=== PATIENT | male | born 1970 | race Asian ===

== ENCOUNTER 2024-11-11 00:37 | Emergency (ER) | payer SELFPAY ==
[~2024-11-11] VITALS: Ht 165.1 cm; Wt 73.0 kg
[2024-11-11 00:55] VITALS: O2SAT 95
[2024-11-11] MEDS ORDERED: HALOPERIDOL LACTATE 5MG/ML VIAL IM ONE (02:00)
[2024-11-11 03:47] LABS: BASOPHILS % 0.3 % (0.0-2.0); EOSINOPHILS % 0.7 % (0.0-5.0); HEMOGLOBIN. 15.9 g/dL (14.0-18.0); LYMPHOCYTES % 34.1 % (20.0-50.0); MEAN CORPUSCULAR HEMOGLOBIN 32.9 pg (28.0-32.0); MEAN CORPUSCULAR HGB CONC 35.3 g/dL (31.0-37.0); MEAN CORPUSCULAR VOLUME 93.4 fL (80.0-94.0); MEAN PLATELET VOLUME 7.5 fl (7.4-10.4); MONOCYTES % 6.9 % (2.0-8.0); PLATELET 237 x1000/uL (130-400); RED BLOOD CELL COUNT 4.82 mill/uL (4.7-6.1); RED CELL DISTRIBUTION WIDTH 12.8 % (11.6-14.6); WHITE BLOOD COUNT 6.1 x1000/uL (4.5-11.0)
[2024-11-11] MEDS: HALOPERIDOL LACTATE 5MG/ML VIAL IM NR (03:52)
[2024-11-11 03:54] LABS: CARBON DIOXIDE 26 mEq/L (21-32); CHLORIDE 103 mEq/L (98-107); POTASSIUM 3.4 mEq/L (3.5-5.1); SODIUM 143 mEq/L (136-145)
[2024-11-11 03:55] LABS: CALCIUM 9.7 mg/dL (8.7-10.4)
[2024-11-11 03:59] LABS: CREATININE 1.5 mg/dL (0.6-1.3)
[2024-11-11 04:00] LABS: ETHANOL BLOOD 300 mg/dL (<10); GLUCOSE 120 mg/dL (70-105); UREA NITROGEN BLOOD 25 mg/dL (9-23)
[2024-11-11 04:01] LABS: ALANINE AMINOTRANSFERASE 44 IU/L (10-49); ALBUMIN 4.4 g/dL (3.2-4.8); ASPARTATE AMINOTRANSFERASE 24 IU/L (<34)
[2024-11-11 04:02] LABS: BILIRUBIN DIRECT 0.1 mg/dL (<=3.0); BILIRUBIN TOTAL 0.9 mg/dL (0.1-1.0); PROTEIN TOTAL 6.8 g/dL (6.0-8.3)
[2024-11-11 05:42] LABS: ACETAMINOPHEN < 2 ug/mL (10-30)
[2024-11-11] MEDS: SODIUM CHLORIDE 0.9% 1,000 ML IV SCH (09:15)
[2024-11-11] MEDS ORDERED: IPRATROPIUM/ALBUTEROL 0.5-3(2.5)MG/3ML NEB HHN PRN (09:15)
[2024-11-11] MEDS ORDERED: ONDANSETRON HCL 4MG/2ML INJ IV PRN (09:15)
[2024-11-11] MEDS ORDERED: ACETAMINOPHEN 325MG TABLET PO PRN ×2 (09:15)
[2024-11-11] MEDS ORDERED: CLONIDINE 0.1MG TABLET PO PRN (09:15)
[2024-11-11] MEDS ORDERED: DOCUSATE SODIUM 100MG CAPSULE PO PRN (09:15)
[2024-11-11 09:39] LABS: AMMONIA 46 uMol/L (<32)
[2024-11-11 09:43] LABS: FOLIC ACID (FOLATE) SERUM 7.11 ng/mL (>5.38); VITAMIN B12 SERUM 304 pg/mL (211-911)
[2024-11-11] MEDS: SODIUM CHLORIDE 0.9% (SEPSIS BOLUS) IV ONE (10:20)
[2024-11-11 11:24] VITALS: BP 109/64; PULSE 76; RESP 20; TEMP 37; O2SAT 97
== END 2024-11-11 11:32 | disposition home or self-care (01) ==
LOC: ER 00:37 → CANBEDREQ 11:11 → ER 11:32
DX: F10.129 Alcohol abuse with intoxication, unspecified (principal); G92.8 Other toxic encephalopathy; Z79.899 Other long term (current) drug therapy; Y90.8 Blood alcohol level of 240 mg/100 ml or more
CPT/HCPCS: 80076; 80048; 80307; 80329; 80320; 82140; 82607; 82746; 85025; 36415; 99285; J1630; G0480